=== PATIENT | female | born 1965 ===

== ENCOUNTER 2016-10-23 17:28 | Emergency (ER) | payer OTHER ==
--- NOTE | 2016-10-23 18:27 | ED PDOC ---
HPI: Female Pain Time Seen by Provider: 10/23/16 17:38 Chief Complaint (Nursing): Female Genitourinary Chief Complaint (Provider): vaginal bleeding History Per: Patient Additional Complaint(s): 51-year-old female presents to emergency department with 2 week history of persistent vaginal bleeding. Patient states bleeding started as her regular menses but has been prolonged. She went to her grain blender who gave her control pills but this has not tapered the bleeding. Patient has known history of fibroids. She also complains of mild dysuria. Patient has been slightly dizzy and weak. She states that she is saturating 8 pads per day. Past Medical History Reviewed: Historical Data, Nursing Documentation, Vital Signs Vital Signs: Last Vital Signs Temp 98.1 F 10/23/16 17:31 Pulse 80 10/23/16 17:31 Resp 18 10/23/16 17:31 BP 143/82 10/23/16 17:31 Pulse Ox 100 10/23/16 17:31 - Medical History PMH: Anemia, Asthma, Hypothyroidism - Surgical History Surgical History: (x3) - Family History Family History: States: No Known Family Hx - Living Arrangements Living Arrangements: With Family - Social History Current smoker - smoking cessation education provided: No Alcohol: None Drugs: Denies - Home Medications Home Medications: Ambulatory Orders Medication Instructions Recorded Albuterol HFA [Ventolin HFA 90 2 puff IH Q6H PRN 12/26/15 mcg/actuation (8 g)] Docusate [Colace] 100 mg PO BID PRN 12/26/15 Ferrous Sulfate [Feosol] 325 mg PO BID 12/26/15 Mometasone/Formoterol [Dulera 100 2 puff IH Q12H 12/26/15 Mcg/5 Mcg Inhaler] Montelukast [Singulair] 10 mg PO HS 12/26/15 Multivitamin/Iron/Folic Acid 1 tab PO DAILY 12/26/15 [Centrum Complete Multivit Tab] Naproxen [Naprosyn] 500 mg PO Q12H #20 tab 12/26/15 methIMAzole [Tapazole] 10 mg PO BID 12/26/15 Phenazopyridine [Phenazopyridine 200 mg PO TID #6 tab 06/23/16 HCl] Sulfamethoxazole/Trimethoprim 1 tab PO BID #20 tab 06/23/16 [Bactrim DS 800 mg-160 mg] Acetaminophen [Acetaminophen Extra 2 tab PO Q4 PRN #24 tablet 08/21/16 Strength] Albuterol 0.083% [Albuterol 0.083% 2.5 mg IH Q6 PRN #100 neb 08/21/16 Inhal [place] (2.5 mg/3 ml) UD] Ibuprofen [Motrin] 1 tab PO Q8 PRN #21 tab 08/21/16 Mask, Face [Nebulizer Aerosol Mask 1 dev XX PRN PRN #1 dev 08/21/16 Adult] Nebulizer [Aeroeclipse II] 1 each MC Q8 PRN #1 each 08/21/16 Promethazine/Codeine 5 ml PO Q12 PRN #100 ml 08/21/16 [Codeine/Promethazine 10 MG/5 Ml-6.25 MG/5 Ml] predniSONE [predniSONE Tab] 2 tab PO DAILY #10 tab 08/21/16 - Allergies Allergies/Adverse Reactions: Allergies Allergy/AdvReac Type Severity Reaction Status Date / Time clorox Allergy SHORTNESS Uncoded 12/26/15 09:41 OF BREATH Review of Systems ROS Statement: Except As Marked, All Systems Reviewed And Found Negative Constitutional: Negative for: Fever Cardiovascular: Negative for: Chest Pain, Palpitations Respiratory: Negative for: Cough Gastrointestinal: Negative for: Nausea, Vomiting Genitourinary Female: Positive for: Dysuria, Vaginal Bleeding, Pelvic Pain. Negative for: Frequency, Incontinence, Hematuria, Vaginal Discharge Neurological: Positive for: Dizziness Physical Exam - Reviewed Nursing Documentation Reviewed: Yes Vital Signs Reviewed: Yes - Physical Exam Appears: Positive for: Well, Non-toxic, No Acute Distress Head Exam: Positive for: ATRAUMATIC, NORMAL INSPECTION Skin: Negative for: Pallor, Rash Cardiovascular/Chest: Positive for: Regular Rate, Rhythm Respiratory: Positive for: Normal Breath Sounds Gastrointestinal/Abdominal: Positive for: Tenderness (Mild tenderness to suprapubic region with no rebound or guarding, no distention) Back: Negative for: L CVA Tenderness, R CVA Tenderness Extremity: Positive for: Normal ROM Neurologic/Psych: Positive for: Alert, Oriented - Laboratory Results Result Diagrams: 10/23/16 18:45 10/23/16 18:45 - ECG O2 Sat by Pulse Oximetry: 100 Pulse Ox Interpretation: Normal Medical Decision Making Medical Decision Makin-year-old female with vaginal bleeding and history of fibroids. Plan: Urine dip and test Transvaginal US CBC PT/PTT CMP IVF PO tylenol US: FINDINGS:Uterus/cervix: 3 intrauterine masses are noted, largest measures up to 1.9 cm. the other measures up to 9 mm and 1.8 cm. These are likely fibroids. Endometrial thickness measures 7.5 mm. Anteverted uterus. Trace fluid is noted in the endometrial canal. Right ovary: Right ovary not visualized. Left ovary: Left ovary measures 2.2 x 2.1 x 1.4 cm. vascular flow noted in the ovary. Patient aware of all diagnostic testing results. She was advised to continue with Tylenol for pain and drink plenty of fluids. Patient was referred to [facility] for follow-up. Disposition - Clinical Impression Clinical Impression: Vaginal bleeding, Uterine fibroid - Patient ED Disposition Is Patient to be Admitted: No Counseled Patient/Family Regarding: Studies Performed, Diagnosis, Need For Followup - Disposition [facility] Disposition: Routine/Home Disposition Time: 19:55 Condition: STABLE Additional Instructions: Tylenol for pain as needed. Drink plenty of fluids. Follow-up with women[facility] clinic. Instructions: Uterine Fibroids (ED), Dysfunctional Uterine Bleeding (ED) Results - Lab Results Lab Results: 10/23/16 18:45 WBC 8.9 RBC 4.78 Hgb 12.1 Hct 36.8 MCV 77.1 L MCH 25.3 L MCHC 32.8 L RDW 14.9 H Plt Count 280 MPV 9.4 Neut % (Auto) 61.1 Lymph % (Auto) 26.4 [place] % (Auto) 6.9 Eos % (Auto) 4.8 H Baso % (Auto) 0.8 Neut # 5.4 Lymph # 2.4 [place] # 0.6 Eos # 0.4 Baso # 0.1 PT 10.3 INR 0.99 APTT 27.4 Sodium 142 Potassium 3.8 Chloride 103 Carbon Dioxide 25 Anion Gap 18 BUN 16 Creatinine 0.6 L Est GFR ( Amer) > 60 Est GFR (Non-Af Amer) > 60 Random Glucose 145 H Calcium 9.3 Total Bilirubin 0.3 AST 33 ALT 26 Alkaline Phosphatase 75 Total Protein 7.0 Albumin 3.8 Globulin 3.2 Albumin/Globulin Ratio 1.2
[2016-10-23] MEDS ORDERED: Sodium Chloride 0.9% 1,000 ML IV STA (18:29)
[2016-10-23 19:16] LABS: BASO # 0.1 K/uL (0.0-0.2); BASO % 0.8 % (0.0-2.0); EOS # 0.4 K/uL (0.0-0.7); EOS % 4.8 % (0.0-4.0); HEMATOCRIT 36.8 % (34.0-47.0); LYMPH # 2.4 K/uL (1.0-4.3); LYMPH % 26.4 % (20.0-40.0); MEAN CELL VOLUME 77.1 fl (81.0-99.0); MEAN CORPUSCULAR HEMOGLOBIN 25.3 pg (27.0-31.0); MEAN CORPUSCULAR HGB CONC 32.8 g/dL (33.0-37.0); MEAN PLATELET VOLUME 9.4 fl (7.2-11.7); MONO # 0.6 K/uL (0.0-0.8); MONO % 6.9 % (0.0-10.0); NEUT # 5.4 K/uL (1.8-7.0); NEUT % 61.1 % (50.0-75.0); NRBC % 0.1 % (0.0-0.0); RED CELL DISTRIBUTION WIDTH 14.9 % (11.5-14.5); WHITE BLOOD COUNT 8.9 K/uL (4.8-10.8)
[2016-10-23 19:20] LABS: PARTIAL THROMBOPLASTIN TIME 27.4 SECONDS (23.3-32.5)
[2016-10-23 19:35] LABS: ALB/GLOB RATIO 1.2 (1.0-2.1); ALKALINE PHOSPHATASE 75 U/L (38-126); ALT/SGPT 26 U/L (9-52); AST/SGOT 33 U/L (14-36); BILIRUBIN,TOTAL 0.3 mg/dl (0.2-1.3); BLOOD UREA NITROGEN 16 mg/dl (7-17); CALCIUM 9.3 mg/dL (8.4-10.2); CARBON DIOXIDE 25 mmol/L (22-30); CHLORIDE 103 mmol/L (98-107); GFR AFRICAN-AMERICAN > 60; GLUCOSE,RANDOM 145 mg/dL (65-105); POTASSIUM 3.8 MMOL/L (3.6-5.0); SODIUM 142 mmol/l (132-148)
[2016-10-23 20:04] VITALS: BP 132/76; PULSE 84; RESP 16; TEMP 98.5; O2SAT 99
--- NOTE | 2016-10-24 08:24 | US ---
Transvaginal pelvic ultrasound History: Prolonged bleeding since 10/09/2016. Comparison: None. Technique: Transvaginal pelvic ultrasound obtained. Findings: The uterus is anteverted and measures 9.6 x 8.2 x 6.4 centimeters. The myometrium appears heterogeneous. Hypodense nodule seen within the myometrium along the anterior aspect measuring 1.8 and 1.7 centimeters. Hypodense nodule along the posterior aspects measure approximately 0.9 centimeters. The endometrium measures approximately 7-8 millimeters. The right ovary was not seen. The left ovary measures 2.2 x 2.1 x 1.4 centimeters. Doppler flow seen within the left ovary. No significant free fluid in the cul-de-sac. Impression: Heterogeneous myometrium which could represent adenomyosis. Additionally, hypodense nodules seen within the myometrium as described above. This could also represent fibroids. Further nonemergent evaluation with MRI pelvis with intravenous contrast should be obtained if there are no contraindications. The right ovary was not seen. The left ovary appears unremarkable. Slightly limited study. Repeat ultrasound can be obtained as per clinical indications. Please note that this evaluation predicated on a negative status.
== END 2016-10-23 20:25 | disposition home or self-care (01) ==
LOC: H.ER 17:28
DX: N93.9 Abnormal uterine and vaginal bleeding, unspecified (principal); D25.9 Leiomyoma of uterus, unspecified; E03.9 Hypothyroidism, unspecified; R30.0 Dysuria

== ENCOUNTER 2017-01-02 17:47 | Emergency (ER) | payer SELFPAY ==
[2017-01-02 18:21] VITALS: BP 139/91; PULSE 75; RESP 16; TEMP 98.1; O2SAT 99
[2017-01-02] MEDS ORDERED: Sodium Chloride 0.9% 1,000 ML IV STA (18:24)
[2017-01-02] MEDS ORDERED: DiphenhydrAMINE 50 mg/ml Inj IVP STA (18:24)
--- NOTE | 2017-01-02 18:30 | ED PDOC ---
HPI: Headache Time Seen by Provider: 01/02/17 18:18 Chief Complaint (Nursing): Headache Additional Complaint(s): Carol Cardoza is a 51 year old female, with a previous medical history of asthma, anemia and hopthyroidism, who presents to the ED with complaints of a gradual onset headache with associated symptoms of nausea and photophobia for 1 day. Patient reports also being hypertensive with a BP of 130/80 ongoing for the past two weeks. Patient denies chest pain, SOB, visual changes, head injury , LOC, fever, chills or vomiting. She denies seeing her PMD for these symptoms. PMD: Dr. Teixeira Past Medical History Reviewed: Historical Data, Nursing Documentation, Vital Signs Vital Signs: Last Vital Signs Temp 98.1 F 01/02/17 18:17 Pulse 75 01/02/17 18:17 Resp 16 01/02/17 18:17 BP 139/91 H 01/02/17 18:17 Pulse Ox 99 01/02/17 18:17 - Medical History PMH: Anemia, Asthma, Hypothyroidism - Surgical History Surgical History: (x3) - Family History Family History: States: No Known Family Hx - Home Medications Home Medications: Ambulatory Orders Medication Instructions Recorded Albuterol HFA [Ventolin HFA 90 2 puff IH Q6H PRN 12/26/15 mcg/actuation (8 g)] Docusate [Colace] 100 mg PO BID PRN 12/26/15 Ferrous Sulfate [Feosol] 325 mg PO BID 12/26/15 Mometasone/Formoterol [Dulera 100 2 puff IH Q12H 12/26/15 Mcg/5 Mcg Inhaler] Montelukast [Singulair] 10 mg PO HS 12/26/15 Multivitamin/Iron/Folic Acid 1 tab PO DAILY 12/26/15 [Centrum Complete Multivit Tab] Naproxen [Naprosyn] 500 mg PO Q12H #20 tab 12/26/15 methIMAzole [Tapazole] 10 mg PO BID 12/26/15 Phenazopyridine [Phenazopyridine 200 mg PO TID #6 tab 06/23/16 HCl] Sulfamethoxazole/Trimethoprim 1 tab PO BID #20 tab 06/23/16 [Bactrim DS 800 mg-160 mg] Acetaminophen [Acetaminophen Extra 2 tab PO Q4 PRN #24 tablet 08/21/16 Strength] Albuterol 0.083% [Albuterol 0.083% 2.5 mg IH Q6 PRN #100 neb 08/21/16 Inhal [place] (2.5 mg/3 ml) UD] Ibuprofen [Motrin] 1 tab PO Q8 PRN #21 tab 08/21/16 Mask, Face [Nebulizer Aerosol Mask 1 dev XX PRN PRN #1 dev 08/21/16 Adult] Nebulizer [Aeroeclipse II] 1 each MC Q8 PRN #1 each 08/21/16 Promethazine/Codeine 5 ml PO Q12 PRN #100 ml 08/21/16 [Codeine/Promethazine 10 MG/5 Ml-6.25 MG/5 Ml] predniSONE [predniSONE Tab] 2 tab PO DAILY #10 tab 08/21/16 Metoclopramide [Reglan] 10 mg PO Q8 PRN #15 tab 01/02/17 Naproxen [Naprosyn] 500 mg PO BID PRN #30 tab 01/02/17 - Allergies Allergies/Adverse Reactions: Allergies Allergy/AdvReac Type Severity Reaction Status Date / Time clorox Allergy SHORTNESS Uncoded 12/26/15 09:41 OF BREATH Review of Systems ROS Statement: Except As Marked, All Systems Reviewed And Found Negative Constitutional: Negative for: Fever, Chills Eyes: Positive for: Other (photophobia ) Gastrointestinal: Positive for: Nausea. Negative for: Vomiting Neurological: Positive for: Headache Physical Exam - Reviewed Nursing Documentation Reviewed: Yes Vital Signs Reviewed: Yes - Physical Exam Appears: Positive for: Well, Non-toxic, No Acute Distress Head Exam: Positive for: ATRAUMATIC, NORMAL INSPECTION, NORMOCEPHALIC Skin: Positive for: Normal Color, Warm, DRY Eye Exam: Positive for: Normal appearance, EOMI, PERRL. Negative for: Nystagmus ENT: Positive for: Normal ENT Inspection Neck: Positive for: Normal, Painless ROM, Supple. Negative for: Decreased ROM Cardiovascular/Chest: Positive for: Regular Rate, Rhythm Respiratory: Positive for: CNT, Normal Breath Sounds Gastrointestinal/Abdominal: Positive for: Normal Exam, Bowel Sounds, Soft. Negative for: Tenderness Back: Positive for: Normal Inspection Extremity: Positive for: Normal ROM, Other (5/5 strength in all extremities ) Neurologic/Psych: Positive for: Alert, Oriented - Laboratory Results Result Diagrams: 01/02/17 19:00 01/02/17 19:00 - ECG O2 Sat by Pulse Oximetry: 99 (RA) Pulse Ox Interpretation: Normal - Progress Re-evaluation Time: 21:05 (Headache has resolved. CT head w/o contrast: no acute intracranial abnormality. ) Condition: Re-examined, Improved Medical Decision Making Medical Decision Making: Initial Impression: Headache Initial Plan: * CT head w/o contrast * labs * benadryl 25 mg IV * IV NS 1,000 ml at 1,000 ml/hr * reglan 10 mg IV * reevaluation Scribe Attestation: Documented by Clarita Whalen acting as a scribe for Felipe Mtz PA-C Provider Attestation: All medical record entries made by the Scribe were at my direction and personally dictated by me. I have reviewed the chart and agree that the record accurately reflects my personal performance of the history, physical exam, medical decision making, and the department course for this patient. I have also personally directed, reviewed, and agree with the discharge instructions and disposition. Disposition - Clinical Impression Clinical Impression: Acute headache - Patient ED Disposition Is Patient to be Admitted: No - Disposition Referrals: [facility] [Outside] Disposition: Routine/Home Disposition Time: 21:07 Condition: IMPROVED Additional Instructions: Follow up with [facility] in 2 days for further evaluation. Prescriptions: Metoclopramide [Reglan] 10 mg PO Q8 PRN #15 tab PRN Reason: headache or nausea Naproxen [Naprosyn] 500 mg PO BID PRN #30 tab PRN Reason: Pain Instructions: Acute Headache (ED) Print Language: IRISH
[2017-01-02] MEDS ORDERED: DiphenhydrAMINE 50 mg/ml Inj ONE (18:47)
[2017-01-02 19:04] LABS: BASO # 0.1 K/uL (0.0-0.2); BASO % 0.8 % (0.0-2.0); EOS # 0.3 K/uL (0.0-0.7); EOS % 3.6 % (0.0-4.0); HEMATOCRIT 40.3 % (34.0-47.0); LYMPH # 2.4 K/uL (1.0-4.3); LYMPH % 25.8 % (20.0-40.0); MEAN CELL VOLUME 78.5 fl (81.0-99.0); MEAN CORPUSCULAR HEMOGLOBIN 25.3 pg (27.0-31.0); MEAN CORPUSCULAR HGB CONC 32.2 g/dL (33.0-37.0); MONO # 0.7 K/uL (0.0-0.8); MONO % 7.6 % (0.0-10.0); NEUT # 5.7 K/uL (1.8-7.0); NEUT % 62.2 % (50.0-75.0); RED CELL DISTRIBUTION WIDTH 16.3 % (11.5-14.5); WHITE BLOOD COUNT 9.1 K/uL (4.8-10.8)
[2017-01-02 19:16] LABS: ALB/GLOB RATIO 1.3 (1.0-2.1); ALKALINE PHOSPHATASE 64 U/L (38-126); ALT/SGPT 30 U/L (9-52); AST/SGOT 22 U/L (14-36); BILIRUBIN,TOTAL 0.2 mg/dl (0.2-1.3); BLOOD UREA NITROGEN 18 mg/dl (7-17); CALCIUM 9.4 mg/dL (8.4-10.2); CARBON DIOXIDE 25 mmol/L (22-30); CHLORIDE 106 mmol/L (98-107); GFR AFRICAN-AMERICAN > 60; GLUCOSE,RANDOM 86 mg/dL (65-105); POTASSIUM 4.5 MMOL/L (3.6-5.0); SODIUM 139 mmol/l (132-148); TOTAL PROTEIN 7.4 G/DL (6.3-8.2)
--- NOTE | 2017-01-02 20:57 | CT ---
EXAM: CT Head Without Intravenous Contrast CLINICAL HISTORY: 51 years old, female; Pain; Headache; Other: Mcfadden's n v photophobia; Patient HX: Mcfadden's n v photophobia. HTN. Hyperthyroidism TECHNIQUE: Axial computed tomography images of the head/brain without intravenous contrast. This CT exam was performed using one or more of the following dose reduction techniques: automated exposure control, adjustment of the mA and/or kV according to patient size, and/or use of iterative reconstruction technique. Coronal and sagittal reformatted images were created and reviewed. COMPARISON: No relevant prior studies available. FINDINGS: Brain: No intracranial hemorrhage. No mass. Small parenchymal calcification. No definite edema. Ventricles: No hydrocephalus. Bones/joints: No acute fracture. Soft tissues: Unremarkable. Sinuses: Scattered mild mucosal thickening of ethmoid sinuses. Mastoid air cells: No mastoid effusion. Orbits: Unremarkable as visualized. IMPRESSION: 1. No acute intracranial abnormality. 2. Incidental/non-acute findings are described above.
== END 2017-01-02 21:21 | disposition home or self-care (01) ==
LOC: H.ER 17:47
DX: R51 Headache (principal); I10 Essential (primary) hypertension; R11.0 Nausea

== ENCOUNTER 2017-02-19 20:36 | Emergency (ER) | payer SELFPAY ==
[2017-02-19 20:57] VITALS: BP 150/93; PULSE 80; RESP 16; TEMP 98.2; O2SAT 98
[2017-02-19] MEDS ORDERED: Alum-Mag Hydrox-Simethicone Susp (30 mL) PO STA (21:38)
[2017-02-19] MEDS ORDERED: Alum-Mag Hydrox-Simethicone Susp (30 mL) ONE (22:03)
[2017-02-19 22:19] LABS: BASO # 0.1 K/uL (0.0-0.2); BASO % 0.7 % (0.0-2.0); EOS # 0.3 K/uL (0.0-0.7); LYMPH # 2.4 K/uL (1.0-4.3); MEAN CELL VOLUME 79.8 fl (81.0-99.0); MEAN CORPUSCULAR HEMOGLOBIN 26.5 pg (27.0-31.0); MEAN CORPUSCULAR HGB CONC 33.1 g/dL (33.0-37.0); MEAN PLATELET VOLUME 8.4 fl (7.2-11.7); MONO # 0.9 K/uL (0.0-0.8); MONO % 6.4 % (0.0-10.0); NEUT # 10.5 K/uL (1.8-7.0); NEUT % 73.9 % (50.0-75.0); NRBC % 0.1 % (0.0-0.0); RED CELL DISTRIBUTION WIDTH 16.1 % (11.5-14.5); WHITE BLOOD COUNT 14.2 K/uL (4.8-10.8)
[2017-02-19 22:22] LABS: RBC URINE 1 /hpf (0-3); URINE BILIRUBIN NEGATIVE (NEGATIVE); URINE BLOOD SMALL (NEGATIVE); URINE COLOR STRAW (YELLOW); URINE GLUCOSE (UA) NEG (Normal); URINE KETONE NEGATIVE (NEGATIVE); URINE LEUKOCYTE ESTERASE NEG Leu/uL (Negative); URINE PROTEIN NEGATIVE (NEGATIVE); URINE UROBILINOGEN 0.2-1.0 mg/dL (0.2-1.0); WBC URINE < 1 /hpf (0-5)
[2017-02-19 22:29] LABS: CHLORIDE 103 mmol/L (98-107); POTASSIUM 4.6 MMOL/L (3.6-5.0); SODIUM 139 mmol/l (132-148)
[2017-02-19 22:31] LABS: ALB/GLOB RATIO 1.4 (1.0-2.1); ALKALINE PHOSPHATASE 104 U/L (38-126); AST/SGOT 32 U/L (14-36); BILIRUBIN,TOTAL 0.4 mg/dl (0.2-1.3); BLOOD UREA NITROGEN 16 mg/dl (7-17); CARBON DIOXIDE 27 mmol/L (22-30); GFR AFRICAN-AMERICAN > 60; TOTAL PROTEIN 7.9 G/DL (6.3-8.2)
[2017-02-19 22:32] LABS: ALT/SGPT 43 U/L (9-52); CALCIUM 10.1 mg/dL (8.4-10.2); GLUCOSE,RANDOM 100 mg/dL (65-105); LIPASE 99 U/L (23-300)
--- NOTE | 2017-02-19 22:48 | ED PDOC ---
HPI: Abdomen Time Seen by Provider: 02/19/17 21:15 Chief Complaint (Nursing): Abdominal Pain Chief Complaint (Provider): Abdominal Pain History Per: Patient History/Exam Limitations: no limitations Onset/Duration Of Symptoms: Days (x1) Current Symptoms Are (Timing): Still Present Additional Complaint(s): Carol Murillo is a 51 year old female who presents to the emergency department with a complaint of persistent epigastric pain after ingesting rice and beans for dinner around 18:00 today, 02/19/17. Denied any nausea, vomiting, change in bowel movements, urinary complaints, chest pain, shortness of breath or prior incidents. PMD: none provided Past Medical History Vital Signs: Last Vital Signs Temp 98.2 F 02/19/17 20:55 Pulse 80 02/19/17 20:55 Resp 16 02/19/17 20:55 BP 150/93 H 02/19/17 20:55 Pulse Ox 98 02/19/17 20:55 - Medical History PMH: Anemia, Asthma, Hypothyroidism - Surgical History Surgical History: (x3) - Family History Family History: States: Unknown Family Hx - Social History Current smoker - smoking cessation education provided: No Alcohol: None Drugs: Denies - Home Medications Home Medications: Ambulatory Orders Medication Instructions Recorded Albuterol HFA [Ventolin HFA 90 2 puff IH Q6H PRN 12/26/15 mcg/actuation (8 g)] Docusate [Colace] 100 mg PO BID PRN 12/26/15 Ferrous Sulfate [Feosol] 325 mg PO BID 12/26/15 Mometasone/Formoterol [Dulera 100 2 puff IH Q12H 12/26/15 Mcg/5 Mcg Inhaler] Montelukast [Singulair] 10 mg PO HS 12/26/15 Multivitamin/Iron/Folic Acid 1 tab PO DAILY 12/26/15 [Centrum Complete Multivit Tab] Naproxen [Naprosyn] 500 mg PO Q12H #20 tab 12/26/15 methIMAzole [Tapazole] 10 mg PO BID 12/26/15 Phenazopyridine [Phenazopyridine 200 mg PO TID #6 tab 06/23/16 HCl] Sulfamethoxazole/Trimethoprim 1 tab PO BID #20 tab 06/23/16 [Bactrim DS 800 mg-160 mg] Acetaminophen [Acetaminophen Extra 2 tab PO Q4 PRN #24 tablet 08/21/16 Strength] Albuterol 0.083% [Albuterol 0.083% 2.5 mg IH Q6 PRN #100 neb 08/21/16 Inhal [place] (2.5 mg/3 ml) UD] Ibuprofen [Motrin] 1 tab PO Q8 PRN #21 tab 08/21/16 Mask, Face [Nebulizer Aerosol Mask 1 dev XX PRN PRN #1 dev 08/21/16 Adult] Nebulizer [Aeroeclipse II] 1 each MC Q8 PRN #1 each 08/21/16 Promethazine/Codeine 5 ml PO Q12 PRN #100 ml 08/21/16 [Codeine/Promethazine 10 MG/5 Ml-6.25 MG/5 Ml] predniSONE [predniSONE Tab] 2 tab PO DAILY #10 tab 08/21/16 Metoclopramide [Reglan] 10 mg PO Q8 PRN #15 tab 01/02/17 Naproxen [Naprosyn] 500 mg PO BID PRN #30 tab 01/02/17 Famotidine [Pepcid] 20 mg PO BID #20 tab 02/19/17 - Allergies Allergies/Adverse Reactions: Allergies Allergy/AdvReac Type Severity Reaction Status Date / Time clorox Allergy SHORTNESS Uncoded 12/26/15 09:41 OF BREATH Review of Systems ROS Statement: Except As Marked, All Systems Reviewed And Found Negative Cardiovascular: Negative for: Chest Pain Respiratory: Negative for: Shortness of Breath Gastrointestinal: Positive for: Abdominal Pain (epigastric). Negative for: Nausea, Vomiting, Other (change in bowel movements) Genitourinary Female: Negative for: Dysuria, Hematuria Physical Exam - Reviewed Nursing Documentation Reviewed: Yes Vital Signs Reviewed: Yes - Physical Exam Appears: Positive for: Well, Non-toxic, No Acute Distress Head Exam: Positive for: ATRAUMATIC, NORMAL INSPECTION, NORMOCEPHALIC Skin: Positive for: Normal Color Cardiovascular/Chest: Positive for: Regular Rate, Rhythm Respiratory: Positive for: CNT, Normal Breath Sounds Gastrointestinal/Abdominal: Positive for: Bowel Sounds, Soft, Tenderness ( epigastric ). Negative for: Normal Exam Back: Positive for: Normal Inspection. 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 Reflux disease Initial Plan: * Urine dipstick * Pepcid 20mg PO * Lidocaine 2% 15ml PO * Maalox Plus 30ml PO * Re-evaluation Time: 2244 --Upon provider reevaluation patient is feeling better, medically stable and requires no further treatment in the ED at this time. Patient will be discharged home with Rx for Pepcid 20mg. Counseling was provided and all questions were answered regarding diagnosis and need for follow up with PCP. There is agreement to discharge plan. Return if symptoms persist or worsen. Clinical Impression: Gastritis ~ Scribe Attestation: Documented by Rebeca Grande, acting as a scribe for Aquiles Villa MD. Provider Scribe Attestation: All medical record entries made by the Scribe were at my direction and personally dictated by me. I have reviewed the chart and agree that the record accurately reflects my personal performance of the history, physical exam, medical decision making, and the department course for this patient. I have also personally directed, reviewed, and agree with the discharge instructions and disposition. Disposition - Clinical Impression Clinical Impression: Gastritis - Disposition Referrals: Jo-Ann Teixeira APN [Family Provider] - Uri Sorenson MD [Staff Provider] - Disposition Time: 22:45 Condition: IMPROVED Prescriptions: Famotidine [Pepcid] 20 mg PO BID #20 tab Instructions: Gastritis (DC), Diet for Ulcers and Gastritis (ED) Forms: [id number] (Maldivian) Print Language: KAZAKH
== END 2017-02-19 23:30 | disposition home or self-care (01) ==
LOC: H.ER 20:36
DX: K29.70 Gastritis, unspecified, without bleeding (principal); E03.9 Hypothyroidism, unspecified; J45.909 Unspecified asthma, uncomplicated

== ENCOUNTER 2018-07-21 10:01 | Emergency (ER) | payer OTHER, SELFPAY ==
[2018-07-21 10:04] VITALS: BMI 28.6
--- NOTE | 2018-07-21 10:23 | ED PDOC ---
HPI: Influenza Time Seen by Provider: 07/21/18 10:10 Chief Complaint: Flu-like Symptoms Chief Complaint (Provider): Flu-like Symptoms History Per: Patient Exam Limitations: no limitations Onset/Duration Of Symptoms: Days (x2) Additional complaint(s):: 53 year old female presenting for evaluation of a sore throat, non-productive cough, and body aches x2 days. Patient is also complaining of a subjective fever. Patient otherwise denies any vomiting or diarrhea. Past Medical History Reviewed: Historical Data, Nursing Documentation, Vital Signs Vital Signs: Last Vital Signs Temp 98.4 F 07/21/18 10:05 Pulse 83 07/21/18 10:05 Resp 17 07/21/18 10:05 BP 132/82 07/21/18 10:05 Pulse Ox 99 07/21/18 10:05 - Medical History PMH: Anemia, Asthma, Hypothyroidism - Surgical History Surgical History: (x3) - Family History Family History: States: Unknown Family Hx - Home Medications Home Medications: Ambulatory Orders Medication Instructions Recorded Albuterol HFA [Ventolin HFA 90 2 puff IH Q6H PRN 12/26/15 mcg/actuation (8 g)] Docusate [Colace] 100 mg PO BID PRN 12/26/15 Ferrous Sulfate [Feosol] 325 mg PO BID 12/26/15 Mometasone/Formoterol [Dulera 100 2 puff IH Q12H 12/26/15 Mcg/5 Mcg Inhaler] Montelukast [Singulair] 10 mg PO HS 12/26/15 Multivitamin/Iron/Folic Acid 1 tab PO DAILY 12/26/15 [Centrum Complete Multivit Tab] Naproxen [Naprosyn] 500 mg PO Q12H #20 tab 12/26/15 methIMAzole [Tapazole] 10 mg PO BID 12/26/15 Phenazopyridine [Phenazopyridine 200 mg PO TID #6 tab 06/23/16 HCl] Sulfamethoxazole/Trimethoprim 1 tab PO BID #20 tab 06/23/16 [Bactrim DS 800 mg-160 mg] Acetaminophen [Acetaminophen Extra 2 tab PO Q4 PRN #24 tablet 08/21/16 Strength] Albuterol 0.083% [Albuterol 0.083% 2.5 mg IH Q6 PRN #100 neb 08/21/16 Inhal [place] (2.5 mg/3 ml) UD] Ibuprofen [Motrin] 1 tab PO Q8 PRN #21 tab 08/21/16 Mask, Face [Nebulizer Aerosol Mask 1 dev XX PRN PRN #1 dev 08/21/16 Adult] Nebulizer [Aeroeclipse II] 1 each MC Q8 PRN #1 each 08/21/16 Promethazine/Codeine 5 ml PO Q12 PRN #100 ml 08/21/16 [Codeine/Promethazine 10 MG/5 Ml-6.25 MG/5 Ml] predniSONE [predniSONE Tab] 2 tab PO DAILY #10 tab 08/21/16 Metoclopramide [Reglan] 10 mg PO Q8 PRN #15 tab 01/02/17 Naproxen [Naprosyn] 500 mg PO BID PRN #30 tab 01/02/17 Famotidine [Pepcid] 20 mg PO BID #20 tab 02/19/17 Azithromycin [Zithromax] 250 mg PO DAILY #6 tab 07/21/18 - Allergies Allergies/Adverse Reactions: Allergies Allergy/AdvReac Type Severity Reaction Status Date / Time clorox Allergy SHORTNESS Uncoded 12/26/15 09:41 OF BREATH Review of Systems ROS Statement: Except As Marked, All Systems Reviewed And Found Negative Constitutional: Positive for: Fever (subjective), Other (body aches) ENT: Positive for: Throat Pain Respiratory: Positive for: Cough. Negative for: Sputum Gastrointestinal: Negative for: Nausea, Vomiting Physical Exam - Reviewed Nursing Documentation Reviewed: Yes Vital Signs Reviewed: Yes - Physical Exam Appears: Positive for: Non-toxic, No Acute Distress Head Exam: Positive for: ATRAUMATIC, NORMAL INSPECTION, NORMOCEPHALIC Skin: Positive for: Normal Color, Warm, Dry Eye Exam: Positive for: EOMI, Normal appearance, PERRL ENT: Positive for: Pharyngeal Erythema. Negative for: Tonsillar Exudate, Tonsillar Swelling Neck: Positive for: Normal, Painless ROM, Supple Cardiovascular/Chest: Positive for: Regular Rate, Rhythm. Negative for: Murmur Respiratory: Positive for: Normal Breath Sounds. Negative for: Respiratory Distress Gastrointestinal/Abdominal: Positive for: Normal Exam, Soft. Negative for: Tenderness Back: Positive for: Normal Inspection. Negative for: L CVA Tenderness, R CVA Tenderness, Vertebral Tenderness Extremity: Positive for: Normal ROM. Negative for: Deformity Neurologic/Psych: Positive for: Alert, Oriented. Negative for: Motor/Sensory Deficits Medical Decision Making Medical Decision Making: Plan: Considering flu vs URI. Will obtain influenza swab. Patient is in no respiratory distress. No CXR is indicated at this time. -Influenza A B Scribe Attestation: Documented by Rey Mcleod, acting as a scribe for Gopal Underwood MD. Provider Scribe Attestation: All medical record entries made by the Scribe were at my direction and personally dictated by me. I have reviewed the chart and agree that the record accurately reflects my personal performance of the history, physical exam, medical decision making, and the department course for this patient. I have also personally directed, reviewed, and agree with the discharge instructions and disposition. - ECG O2 Sat by Pulse Oximetry: 99 (RA) Pulse Ox Interpretation: Normal Disposition - Clinical Impression Clinical Impression: Acute bronchitis - Patient ED Disposition Is Patient to be Admitted: No Counseled Patient/Family Regarding: Studies Performed, Diagnosis, Need For Followup, Rx Given - Disposition Referrals: [facility] [place] [facility] [Outside] Disposition: Routine/Home Disposition Time: 11:39 Condition: FAIR Prescriptions: Azithromycin [Zithromax] 250 mg PO DAILY #6 tab Instructions: Acute Bronchitis Forms: [employer] (Somali) Print Language: PANAMANIAN
[2018-07-21 11:51] VITALS: BP 128/78; PULSE 78; RESP 19; TEMP 97; O2SAT 98
== END 2018-07-21 11:53 | disposition home or self-care (01) ==
LOC: H.ER 10:01
DX: J20.9 Acute bronchitis, unspecified (principal)